=== PATIENT | male | born 1965 ===

== ENCOUNTER → 2020-07-05 | Outpatient (CLI) | payer BC | END | disposition home or self-care (01) | LOC: LAB SHORT 16:53 → LAB 16:53 | DX: Z11.59 Encounter for screening for other viral diseases (principal) | CPT/HCPCS: 86803 ==

== ENCOUNTER → 2021-04-07 | Outpatient (CLI) | payer OTHER ==
[2021-04-07 19:38] LABS: BASOPHILS ABSOLUTE AUTO 0.07 K/mm3 (0.00-0.23); BASOPHILS PERCENT AUTO 1 % (0-2); EOSINOPHILS ABSOLUTE AUTO 0.27 K/mm3 (0.00-0.68); EOSINOPHILS PERCENT AUTO 4 % (0-6); Hematocrit 44.7 % (37.0-53.0); Hemoglobin 15.2 g/dL (13.5-17.5); IMMATURE GRAN ABSOLUTE AUTO 0.03 K/mm3 (0.00-0.10); IMMATURE GRAN PERCENT AUTO 1 % (0-1); LYMPHOCYTES ABSOLUTE AUTO 2.14 K/mm3 (0.84-5.20); LYMPHOCYTES PERCENT AUTO 35 % (21-46); MONOCYTES ABSOLUTE AUTO 0.64 K/mm3 (0.16-1.47); MONOCYTES PERCENT AUTO 10 % (4-13); Mean Corpuscular HGB 31.5 pg (26.0-34.0); Mean Corpuscular Volume 93 fL (80-100); Mean Platelet Volume 10.3 fL (9.1-12.4); NEUTROPHILS PERCENT AUTO 49 % (41-73); Platelet Count 218 K/mm3 (150-400); RDW Coefficient Variation 12.2 % (11.7-14.2); Red Blood Cell Count 4.82 M/mm3 (4.30-5.90); White Blood Cell Count 6.15 K/mm3 (4.00-11.30)
[2021-04-07 20:03] LABS: Alanine Aminotransfer (ALT/SGP 27 U/L (12-78); Albumin, Blood 4.1 g/dL (3.4-5.0); Albumin/Globulin Ratio 1.2 (0.8-1.8); Alk Phos 73 U/L (50-136); Anion Gap 5 mmol/L (6-16); Aspartate Aminotrans (AST/SGOT 18 U/L (12-37); Bilirubin, Total 0.6 mg/dL (0.1-1.0); Blood Urea Nitrogen 15 mg/dL (8-24); Bun/Creatinine Ratio 14.7 (12.0-20.0); CHOL/HDL RATIO 5.1; CO2, Blood 28 mmol/L (21-32); Calcium, Blood 8.9 mg/dL (8.5-10.1); Chloride, Blood 109 mmol/L (98-108); Cholesterol 185 mg/dL (50-200); Creatinine, Blood 1.02 mg/dL (0.60-1.20); Globulin, Blood 3.4 g/dL (2.2-4.0); Glomerular Filtration Rate >60 (60-); Glucose, Blood 107 mg/dL (70-99); HDL Cholesterol 36 mg/dL (>39); LDL/HDL RATIO 3.3; Low Density Lipoprotein Chol 119 mg/dL (0-110); Potassium, Blood 4.2 mmol/L (3.5-5.5); Sodium, Blood 142 mmol/L (136-145); Total Protein, Blood 7.5 g/dL (6.4-8.2); Triglycerides 149 mg/dL (30-160); Very Low Density Lipoprot Chol 29 mg/dL (6-32)
== END | disposition home or self-care (01) ==
LOC: LAB 17:03 → LAB SHORT 17:03
PROVIDERS: Nurse Practitioner Family
DX: I10 Essential (primary) hypertension (principal); E78.5 Hyperlipidemia, unspecified
CPT/HCPCS: 80053; 80061; 85025

== ENCOUNTER 2025-03-10 23:53 | Inpatient (IN) | payer OTHER ==
[~2025-03-10] VITALS: Ht 165.1 cm; Wt 85.3 kg
[2025-03-11] VITALS (25 sets, daily range): BP systolic 98–198; BP diastolic 61–99
[2025-03-11] MEDS ORDERED: Ondansetron HCl 2 MG / ML 2ML Vial IV PRN ×2 (00:05→03:25)
[2025-03-11 00:22] LABS: BASOPHILS ABSOLUTE AUTO 0.06 K/mm3 (0.00-0.23); BASOPHILS PERCENT AUTO 1 % (0-2); EOSINOPHILS PERCENT AUTO 3 % (0-6); Hematocrit 43.2 % (37.0-53.0); Hemoglobin 15.1 g/dL (13.5-17.5); IMMATURE GRAN ABSOLUTE AUTO 0.06 K/mm3 (0.00-0.10); IMMATURE GRAN PERCENT AUTO 1 % (0-1); LYMPHOCYTES ABSOLUTE AUTO 2.93 K/mm3 (0.84-5.20); LYMPHOCYTES PERCENT AUTO 31 % (21-46); MONOCYTES ABSOLUTE AUTO 0.78 K/mm3 (0.16-1.47); MONOCYTES PERCENT AUTO 8 % (4-13); Mean Corpuscular HGB 31.1 pg (26.0-34.0); Mean Corpuscular Volume 89 fL (80-100); Mean Platelet Volume 9.8 fL (9.1-12.4); NEUTROPHILS ABSOLUTE AUTO 5.47 K/mm3 (1.96-9.15); NEUTROPHILS PERCENT AUTO 57 % (41-73); Platelet Count 188 K/mm3 (150-400); RDW Coefficient Variation 12.3 % (11.7-14.2); Red Blood Cell Count 4.86 M/mm3 (4.30-5.90)
[2025-03-11 00:43] LABS: Albumin, Blood 4.3 g/dL (3.4-5.0); Albumin/Globulin Ratio 1.5 (0.8-1.8); Bilirubin, Total 0.6 mg/dL (0.1-1.0); Bun/Creatinine Ratio 15.7 (12.0-20.0); Calcium, Blood 8.8 mg/dL (8.5-10.1); Creatinine, Blood 1.15 mg/dL (0.60-1.20); Globulin, Blood 2.9 g/dL (2.2-4.0); Potassium, Blood 4.1 mmol/L (3.5-5.5); Total Protein, Blood 7.2 g/dL (6.4-8.2)
[2025-03-11] MEDS ORDERED: FentaNYL Citrate 50 MCG/ML 2 ML Injection IV PRN ×2 (01:15→03:25)
[2025-03-11] MEDS ORDERED: NS 1,000 ML IV ONE (03:25)
[2025-03-11] MEDS ORDERED: Ampicillin Sod/Sulbactam Sod 3 GM in NS 100 ML IV SCH (04:00)
[2025-03-11] MEDS ORDERED: B-COMPLEX1 EACH PO (04:39)
--- NOTE | 2025-03-11 07:17 | NUR ---
PT ADMITTED TO ROOM 357 THIS AM AT 0400. PT ABLE TO AMBULATE FROM GURNEY TO BED. ALERT AND ORIENTED. PLEASANT AND COOPERATIVE WITH CARE AND ASSESSMENT. PT ABLE TO FULLY PARTICIPATE IN ADMISSION SURVEY. PT ABLE TO VOID QUANTITY SUFFICIENT. PT DOES STATE THAT HE HAS BEEN EXPERIENCING SOME DYSURIA IN AM'S. PT WAS MEDICATED ONCE WITH 50 MCG'S FENTANYL FOR COMPLAINT OF ABDOMINAL PAIN. PT HAS BEEN ABLE TO SLEEP AFTERWARDS. PT RECEIVES FIRST DOSE OF ANTIBIOTICS. NO S/S ADVERSE REACTIONS TO NOTE. TEACHING DONE ON MEDICATIONS, ABDOMINAL ULTRASOUND, AND FURTHER TESTING IN REGARDS TO GALLBLADDER. REPORT GIVEN TO KULDEEP MONZON.
[2025-03-11 10:25] LABS: Source, Urine Clean Catch
[2025-03-11 10:36] LABS: Appearance, Urine Clear (Clear); Bilirubin, Urine Neg (Neg); Blood, Urine Neg (Neg); Color, Urine Yellow (P-Yellow); Glucose Qualitative, Urine Neg (Neg); Ketones, Urine Neg (Neg); Leukocyte Esterase, Urine Neg (Neg); Nitrite, Urine Neg (Neg); Protein, Urine Neg (Neg); Urobilinogen, Urine NORM (Normal); pH, Urine 6.5 (5.0-8.0)
[2025-03-11] MEDS ORDERED: Indocyanine Green 25 MG Vial IV STA (11:09)
[2025-03-11] MEDS ORDERED: Lactated Ringer's 1,000 ML IV SCH (12:10)
[2025-03-11] MEDS ORDERED: Lactated Ringer's 1,000 ML IV ONE (12:14)
[2025-03-11] MEDS ORDERED: Bupivacaine 0.5% HCl 5 MG/ML 30MLVIAL ONE (12:32)
[2025-03-11] MEDS ORDERED: Rocuronium Bromide 10 MG/ML 5ML Injection IV ONE (13:08)
[2025-03-11] MEDS ORDERED: Ondansetron HCl 2 MG / ML 2ML Vial ONE (13:08)
[2025-03-11] MEDS ORDERED: Dexamethasone Sod Phos 10 MG/ML 1ML VIAL ONE (13:08)
[2025-03-11] MEDS ORDERED: propofoL 20 ML IV ONE (13:08)
[2025-03-11] MEDS ORDERED: Phenylephrine HCl 100 MCG/ML-NS 10MLSYR (1MG/10ML) ONE (13:08)
[2025-03-11] MEDS ORDERED: Ketorolac Tromethamine 30mg Vial ONE (13:08)
[2025-03-11] MEDS ORDERED: SuccINYLCHOLINE Chloride 100 MG/5 ML 5MLSYR ONE (13:08)
[2025-03-11] MEDS ORDERED: Sugammadex Sodium 200 MG/2ML SDV (100 MG/ML) ONE (13:10)
--- NOTE | 2025-03-11 13:15 | NUR ---
TRANSFER NOTE PT TRANSFERRED TO ROOM 224, REPORT GIVEN TO MAMADOU. PERSONAL BELONGINGS TAKEN TO THE NEW ROOM. UPDATED.
--- NOTE | 2025-03-11 13:18 | NUR ---
REPORT RECEIVED FROM [facility] NA TRAN AT THIS TIME
--- NOTE | 2025-03-11 13:22 | NUR ---
PT TO UNIT VIA W/C. ABLE TO TRANSFER TO [facility] INDEPENDENTLY TO [facility]. PT USED RESTROOM IN HIS ROOM BEFORE COMING TO DAY SURGERY. WEDDING BAND REMOVED AND PLACED IN DENTURE CUP AND PLACED IN PT BELONGING'S BAG IN SLIPPER. CELL PHONE GIVEN TO SAFE AND VAULT INSTALLER IN DAY SURGERY. ALL OTHER BELONGINGS LEFT IN PT'S ROOM. PT UDATED ON DELAY IN ROOM DUE TO SURGEON BEING IN A MEETING. AT BEDSIDE WELL AND HIS SAFE AND VAULT INSTALLER. Pre-Op teaching done. Pt verbalizes understanding. PAIN REPORTED TOLERABLE. NO NAUSEA. Patient confirms NPO status and agrees with scheduled surgery.
[2025-03-11] MEDS ORDERED: Midazolam HCl 1MG / ML 2ML Vial ONE (13:32)
[2025-03-11] MEDS ORDERED: FentaNYL Citrate 50 MCG/ML 2 ML Injection ONE ×2 (13:32→16:35)
[2025-03-11] MEDS ORDERED: propofoL 200 ML IV ONE (13:54)
[2025-03-11] MEDS ORDERED: HYDROmorphone HCl/Pf 1MG SYR ONE ×2 (15:12→16:11)
--- NOTE | 2025-03-11 17:21 | NUR ---
REPORT RECIEVED FROM CLAMPERNA PHILLIPS. PT TO UNIT AT ABOUT 1710. VSS, DROWSY BUT FOLLOWS COMMANDS. ORIENTED X2 CONFUSED ABOUT PLACE AND TIME. PT AT BEDSIDE AND HELPFUL WITH REORIENTATION. SURGICAL SITES WNL, PT DENIES PAIN. TELE BOX APPLIED AND VERIFIED WITH LISSETTE ROSA TECH, NSR 87. BED ALARM SET FOR SAFETY.
[2025-03-11] MEDS ORDERED: Piperacillin/Tazobactam Sod 3.375 GM in NS 100 ML IV SCH (18:00)
--- NOTE | 2025-03-12 04:34 | NUR ---
SHIFT SUMMARY BUCK WAS ALERT AND ABLE TO ANSWER ORIENTATION QUESTIONS APPROPIATELY ON ASSESSMENT BUT WAS STILL NOTABLY FOGGY/ OUT OF IT FROM ANESTHESIA. PT MENTATION CLEARED UP T/O SHIFT. LAP SITES C/D/I. PT DENIES PAIN/ SOB/ NAUSEA. PT INDEPENDENT IN ROOM. AMBULATING AND VOIDING APPROPRIATELY. NO ACUTE EVENTS OR NOTED CHANGES TO PT CONDITION.
[2025-03-12 05:47] VITALS: BP 103/57
[2025-03-12 07:21] VITALS: BP 97/52
--- NOTE | 2025-03-12 07:52 | NUR ---
ASSUMPTION OF CARE: THIS RN ASSUMED CARE OF PATIENT. ASLEEP DURING SHIFT CHANGE REPORT; WOKE FOR INTRODUCTIONS. S/O @ BEDSIDE, SLEEPING IN RECLINER. PATIENT SLEEPING IN BED ON RIGHT SIDE, FACING WINDOW. BREATHING EVEN AND UNLABORED ON ROOM AIR. 02 @ BEDSIDE PRN. MOST RECENT TELE STRIP IN CHART READS SINUS ELISHA @ 56. BP SLIGHTLY SOFT PER CMO REPORT; REVIEW YIELDS SBP < 100. NO AMS. BED IN LOWEST POSITION. CALL LIGHT WITHIN REACH. ACUTE NEEDS MET.
[2025-03-12] MEDS ORDERED: Acerola C500 MG PO (10:39)
[2025-03-12] MEDS ORDERED: AMOCLA875 PO (11:28)
--- NOTE | 2025-03-12 13:10 | NUR ---
DISCHARGE SUMMARY: A&Ox4. PLEASANT AND COOPERATIVE WITH CARE. CALLS APPROPRIATELY AND IS ABLE TO ADVOCATE NEEDS EFFECTIVELY. AMBULATES INDEPENDENTLY. CONTINENT OF BOWEL AND BLADDER; LBM TODAY. MEDS WHOLE c FLUIDS. TELE SINUS ELISHA. PAIN CONTROLLED. MEDICATIONS FAXED TO [facility]. INSTRUCTED TO FOLLOW-UP WITH SURGEON AND PCP. LEFT FLOOR AT 1215 WITH ALL BELONGINGS AND DISCHARGE PACKET, ESCORTED BY , S[facility], TRANSPORTING VIA POV.
== END 2025-03-12 12:52 | disposition home or self-care (01) | DRG 419 ==
LOC: ER 23:53 → MEDS 23:54 → SURS 03-11 13:08
PROVIDERS: Emergency Medicine; Surgery; ADMIT Internal Medicine
PROC: 8E0W4CZ Robotic Assisted Procedure of Trunk Region, Percutaneous Endoscopic Approach (ICD-10-PCS; 2025-03-11)
PROC: BF52200 Other Imaging of Gallbladder using Fluorescing Agent, Indocyanine Green Dye, Intraoperative (ICD-10-PCS; 2025-03-11)
PROC: 0FT44ZZ Resection of Gallbladder, Percutaneous Endoscopic Approach (ICD-10-PCS; principal; 2025-03-11 13:30)
DX: K80.00 Calculus of gallbladder with acute cholecystitis without obstruction (principal); E86.0 Dehydration; R73.09 Other abnormal glucose; K82.A1 Gangrene of gallbladder in cholecystitis; K66.0 Peritoneal adhesions (postprocedural) (postinfection); Z79.899 Other long term (current) drug therapy
CPT/HCPCS: 74177; 74181; 76705; 80053; 81003; 83690; 83880; 85025; 88304; 96374-59; 96375; 99285-25; G0378; J0295; J0330; J1100; J1171; J1885; J2250; J2371; J2405; J2543; J2704; J3010; J7030; J7120; Q9967